=== PATIENT | male | born 1975 | race Caucasian/White ===

== ENCOUNTER 2016-07-08 22:14 | Emergency (ER) | payer BC ==
[2016-07-08 23:51] LABS: HEMOGLOBIN 16.3 gm/dl (14.0-17.5); RED BLOOD COUNT 5.56 M/UL (4.20-5.50); WHITE BLOOD COUNT 12.7 K/UL (4.5-11.0)
[2016-07-09 00:10] LABS: BUN/CREATININE RATIO 12 (0-10)
[2016-07-13] MEDS ORDERED: FLOMAX 0.4 MG0.4 MG PO (12:11)
[2016-07-13] MEDS ORDERED: HYDROCODON-ACE1 EAC2 PO (12:11)
[2016-07-13] MEDS ORDERED: DOCUSATE SODIU250 MG PO (14:39)
[2016-07-13] MEDS ORDERED: ZOFRAN 8 MG TAB8 MG PO (14:40)
[2016-07-13] MEDS ORDERED: PERCOCET 5/325 T1 EA PO (14:41)
== END 2016-07-09 03:10 | disposition home or self-care (01) ==
LOC: ER1 22:14
PROVIDERS: Physician Assistant
DX: S62.616A Displaced fracture of proximal phalanx of right little finger, initial encounter for closed fracture (principal); N20.2 Calculus of kidney with calculus of ureter; F17.210 Nicotine dependence, cigarettes, uncomplicated; W19.XXXA Unspecified fall, initial encounter; Z79.899 Other long term (current) drug therapy
CPT/HCPCS: 36415; 73130; 80053; 81001; 83690; 85025; 87086; 99284

== ENCOUNTER → 2016-07-13 | Day surgery (SDC) | payer BC ==
[~2016-07-13] VITALS: Ht 172.7 cm; Wt 91.6 kg
[~2016-07-13] MED LIST: DOCUSATE SODIU250 MG PO; FLOMAX 0.4 MG0.4 MG PO; HYDROCODON-ACE1 EAC2 PO; PERCOCET 5/325 T1 EA PO; ZOFRAN 8 MG TAB8 MG PO
[2016-07-13 12:24] LABS: BUN/CREATININE RATIO 11 (0-10)
== END | disposition home or self-care (01) ==
LOC: OR 07:30
PROVIDERS: Orthopaedic Surgery
PROC: 0PST04Z Reposition Right Finger Phalanx with Internal Fixation Device, Open Approach (ICD-10-PCS; principal; 2016-07-13 12:15)
DX: S62.616A Displaced fracture of proximal phalanx of right little finger, initial encounter for closed fracture (principal); E78.5 Hyperlipidemia, unspecified; F17.210 Nicotine dependence, cigarettes, uncomplicated; Z87.442 Personal history of urinary calculi; Z82.0 Family history of epilepsy and other diseases of the nervous system; Z82.49 Family history of ischemic heart disease and other diseases of the circulatory system; Z83.3 Family history of diabetes mellitus; Z79.899 Other long term (current) drug therapy; W19.XXXA Unspecified fall, initial encounter
CPT/HCPCS: 36415; 73130; 73140; 76000; 80048; 93005; C1763; J0690; J2250; J3010; J7120